=== PATIENT | male | born 1970 | race Caucasian/White ===

== ENCOUNTER → 2016-11-05 | Outpatient (CLI) | payer OTHER ==
--- NOTE | 2016-11-05 09:27 | MR ---
EXAMINATION TYPE: MR wrist LT wo con DATE OF EXAM: 11/05/2016 COMPARISON: NONE HISTORY: Lt wrist pain Standard multiplanar, multisequence MRI departmental protocol Multiplanar, multisequence images of the left wrist were acquired. Diffusion weighted imaging was per formed. FINDINGS: Situated just medially (ulnar aspect) to the radial nerve and artery there is a multiloculated T2 hyp erintense and PD (T1-weighted) hypointense ganglion cyst with its superficial portion located just de ep to the skin surface and its deep portion extending posteriorly to the flexor carpi radialis to abu t the flexor pollicis longus. This measures 1.9 x 1.3 x 1.2 cm in craniocaudal by transverse by anter ior posterior dimension. Again this closely abuts the radial artery and nerve. There is a second partially visualized probable ganglion cyst measuring 0.7 x 0.9 cm within the flexo r aspect of the hand seen just superficial to the flexor digitorum superficialis. This overlies the t hird and fourth metacarpal interspace. There is no evidence of bone marrow edema, however subchondral cystic changes are seen within the carlito ate, triquetrum, capitate, and hamate. The triangular fibrocartilage appears intact although somewhat limited in the nonarthrographic techni que. No fracture line is appreciated. Scapholunate ligament appears intact. The hand is slightly exte nded in the lateral image, limiting angle measurements. IMPRESSION: 1. There is a 1.9 cm multiloculated ganglion cyst intimately associated with the radial nerve and art alexa extending posteriorly to the flexor carpi radialis to abut the flexor pollicis longus. 2. A second probable 9 mm ganglion cyst is partially visualized on the coronal and sagittal sequences only located at the volar surface of the third and fourth metacarpal interspace near the flexor digi torum superficialis. 3. Degenerative cystic changes of the carpals as described above.
== END | disposition home or self-care (01) ==
LOC: RADMRIMAIN 06:00
PROVIDERS: ATTEND Orthopaedic Surgery
DX: M67.432 Ganglion, left wrist (principal)

== ENCOUNTER → 2020-12-06 | Outpatient (CLI) | payer BC ==
--- NOTE | 2020-12-06 15:41 | ECHOS ---
STRESS ECHOCARDIOGRAM INDICATIONS: Chest pain. BASELINE HEART RATE: 85 BASELINE BLOOD PRESSURE: 148/97 MAXIMUM HEART RATE: 155 MAXIMUM BLOOD PRESSURE: 173/88 85% MPHR: 144 100% MPHR: 169 METS: 10.5 MAXIMUM STAGE REACHED: III TOTAL EXERCISE TIME: 9:20 CLINICAL INFORMATION: Baseline EKG shows normal sinus rhythm, normal axis, normal intervals. Patient exercised on Gilbert protocol for a total of 8 minutes as per protocol, achieving 9 METS, 85% of predicted maximal heart rate, without chest pain or diagnostic ST-segment depression. Baseline echo shows normal left ventricular size, wall motion, systolic function. Post exercise there is normal hyperdynamic response of all segments of myocardium noted. Patient was given intravenous Lumason for better endocardial visualization. CONCLUSIONS: 1. Good exercise tolerance. 2. Negative contrast-enhanced stress echo. MMODL / IJN: [id number] /
== END | disposition home or self-care (01) ==
LOC: RADNMMAIN 09:05
PROVIDERS: ATTEND Family Medicine
DX: R07.9 Chest pain, unspecified (principal)
CPT/HCPCS: 93351; Q9950